=== PATIENT | female | born 1955 | race Caucasian/White ===

== ENCOUNTER 2018-08-05 04:31 | Emergency (ER) | payer BC ==
[~2018-08-05] VITALS: Ht 157.5 cm; Wt 62.6 kg
[2018-08-05] MEDS ORDERED: VOLTAREN-XR100 MG PO (07:29)
== END 2018-08-05 14:06 | disposition home or self-care (01) ==
LOC: ER 04:31
DX: M25.521 Pain in right elbow (principal)